=== PATIENT | male | born 1970 | race Two or more races ===

== ENCOUNTER 2019-02-10 06:30 | Day surgery (SDC) | payer OTHER ==
[~2019-02-10 06:30] MED LIST: TOPROL XL25 M1 PO; TRILIPIX135 MG PO; VYTORIN 10-201 EACH PO
== END 2019-02-10 20:33 | disposition home or self-care (01) ==
LOC: CIR.AMB 06:30
DX: K64.8 Other hemorrhoids (principal); K64.4 Residual hemorrhoidal skin tags